=== PATIENT | female | born 1965 | race Caucasian/White ===

== ENCOUNTER → 2017-12-06 | Outpatient (CLI) | payer OTHER ==
[~2017-12-06] MED LIST: GLUCOPHAGE500 MG PO; KEFLEX500 MG PO; METFORMIN500 MG PO
== END | disposition home or self-care (01) ==
LOC: US 11:00
DX: E04.1 Nontoxic single thyroid nodule (principal)

== ENCOUNTER 2024-06-05 18:06 | Emergency (ER) | payer OTHER ==
[2024-06-05] MEDS ORDERED: CEPHALEXIN500 M1 PO (18:21)
[2024-06-05] MEDS ORDERED: Tdap Vaccine 0.5 ML SYR (Adult Vaccine) IM ONE (18:30)
== END 2024-06-05 18:53 | disposition home or self-care (01) ==
LOC: ED 18:06
DX: S61.212A Laceration without foreign body of right middle finger without damage to nail, initial encounter (principal); I11.0 Hypertensive heart disease with heart failure; E11.9 Type 2 diabetes mellitus without complications; W26.8XXA Contact with other sharp object(s), not elsewhere classified, initial encounter; Y93.89 Activity, other specified; Y92.098 Other place in other non-institutional residence as the place of occurrence of the external cause; Y99.8 Other external cause status